=== PATIENT | male | born 1945 | race Caucasian/White ===

== ENCOUNTER 2018-03-27 08:01 | Outpatient (CLI) | payer MEDICARE ==
--- NOTE | 2018-03-27 10:20 | ULT ---
BILATERAL RENAL ULTRASOUND COMPLETE: History: 72-year-old male with chronic kidney disease. FINDINGS: Right kidney measures 13.3 x 7.2 x 7.1 cm and contains a 3.2 x 4.3 x 4.9 cm cyst. Left kidney measures 10.9 x 6.0 x 5.7 cm. There is bilateral cortical thinning. No significant hydron ephrosis. There are two nodular foci within the bladder, one to the right side and the other more pos teriorly. Bladder mass/masses is certainly a consideration. Some heterogeneous bladder wall thickenin g. Follow up cystoscopy should be considered. IMPRESSION: Minimal diffuse renal cortical thinning without hydronephrosis. Right renal cyst. At least two nodula r serena within the bladder. There is some heterogeneous bladder wall thickening as well. Follow up bi lateral cystoscopy in this regard is suggested. POS: [facility]
== END 2018-03-27 08:02 | disposition home or self-care (01) ==
LOC: SCSULT 08:01
PROVIDERS: ATTEND Family Medicine
DX: N18.3 Chronic kidney disease, stage 3 (moderate) (principal); N28.1 Cyst of kidney, acquired; N32.9 Bladder disorder, unspecified
CPT/HCPCS: 76770

== ENCOUNTER 2019-03-06 05:39 | Emergency (ER) | payer MEDICARE ==
[2019-03-06 06:04] LABS: Blood, Urine Large (Negative); Clarity Cloudy (Clear); Glucose, Urine (Dipstick) Negative (Negative); Protein, Urine (Dipstick) > or equal to 300 mg/dL (Neg-Trace)
[2019-03-06 06:07] LABS: Leukocyte Unable to Interpret (Negative); Nitrite Unable to Interpret (Negative)
[2019-03-06 06:08] LABS: Bilirubin Unable to Interpret (Negative); Urobilinogen UNABLE TO INTERPRET mg/dL (Less than 2)
[2019-03-06 06:19] LABS: RBC/HPF Greater than 50 HPF (0-3); Squamous Epithelial 0-3 HPF (0-3); WBC/HPF 21-50 HPF (0-3)
[2019-03-06 06:22] LABS: Bacteria/HPF 2+ HPF (None Seen)
== END 2019-03-06 06:39 | disposition home or self-care (01) ==
LOC: SCSER 05:39
DX: R31.0 Gross hematuria (principal); E78.5 Hyperlipidemia, unspecified; I10 Essential (primary) hypertension; Z79.899 Other long term (current) drug therapy
CPT/HCPCS: 81003; 81015; 87077; 87086; 87186; 99283

== ENCOUNTER 2021-07-09 08:50 | Outpatient (CLI) | payer MEDICARE ==
[2021-07-09 11:23] LABS: #Basophils 0.1 10x3/uL (0.0-0.2); #Eosinphils 0.1 10x3/uL (0.0-0.5); #Monocytes 0.5 10x3/uL (0.0-1.1); %Eosinophils 2.7 % (0.0-6.0); %Lymphocytes 28.5 % (18.0-47.0); %Monocytes 9.8 % (0.0-10.0); %Neutrophils 57.8 % (40.0-75.0); Hemoglobin 15.5 g/dL (13.5-17.5); Mean Corpuscular HGB CONC 32.6 g/dL (32.0-36.0); Mean Corpuscular Hemoglobin 29.4 pg (27.0-33.0); Mean Corpuscular Volume 90.1 fl (81.2-95.1); Mean Platelet Volume 11.6 fl (7.4-10.4); Platelet Count 171 10x3/uL (150-450); RBC Distribution Width 13.1 % (11.5-14.5); Red Blood Cell (RBC) Count 5.27 10x6/uL (4.32-5.72); White Blood Cell (WBC) Count 5.2 10x3/uL (3.5-10.5)
[2021-07-09 11:43] LABS: Anion Gap 12 mmol/L (10-20); BUN (Urea Nitrogen) 19 mg/dL (8.4-25.7); Calc. Creatinine Clearance 0 mL/min (70-130); Calcium 8.9 mg/dL (7.8-10.44); Carbon Dioxide 29 mmol/L (23-31); Chloride 104 mmol/L (98-107); Glucose 116 mg/dL (83-110); Potassium 4.6 mmol/L (3.5-5.1); Sodium 140 mmol/L (136-145)
[2021-07-09 20:43] LABS: SARS-CoV-2 PCR by NAA Not Detected (NotDetected)
== END 2021-07-09 08:51 | disposition home or self-care (01) ==
LOC: LABBT 08:50
PROVIDERS: ATTEND Orthopaedic Surgery Hand Surgery
DX: Z01.818 Encounter for other preprocedural examination (principal); M72.0 Palmar fascial fibromatosis [Dupuytren]; Z20.822 Contact with and (suspected) exposure to COVID-19
CPT/HCPCS: 80048; 85025; 93005; U0003; U0005; 93010

== ENCOUNTER 2021-10-29 14:28 | Outpatient (CLI) | payer MEDICARE ==
[2021-10-29 23:17] LABS: SARS-CoV-2 PCR by NAA Not Detected (NotDetected)
== END 2021-10-29 14:29 | disposition home or self-care (01) ==
LOC: LABBT 14:28
PROVIDERS: ATTEND Orthopaedic Surgery Hand Surgery
DX: Z01.812 Encounter for preprocedural laboratory examination (principal); M72.0 Palmar fascial fibromatosis [Dupuytren]; Z20.822 Contact with and (suspected) exposure to COVID-19
CPT/HCPCS: U0003; U0005

== ENCOUNTER 2021-11-02 10:43 | Day surgery (SDC) | payer MEDICARE ==
[2021-10-28 14:56] VITALS: BMI 32.7
[2021-11-02] MEDS ORDERED: fentaNYL Citrate/PF 100 MCG/2 ML SYRINGE ONE (12:33)
[2021-11-02 12:44] LABS: #Eosinphils 0.1 thou/uL (0.0-0.7); #Lymphocytes 1.4 thou/uL (1.20-3.40); #Monocytes 0.5 thou/uL (0.11-0.59); #Neutrophils 3.5 thou/uL (1.40-6.50); %Basophils 0.5 % (0.0-1.0); %Eosinophils 2.1 % (0.0-10.0); %Lymphocytes 24.9 % (21.0-51.0); %Monocytes 9.4 % (0.0-10.0); %Neutrophils 63.1 % (42.0-75.0); Hemoglobin 15.4 g/dL (14.0-18.0); Mean Corpuscular HGB CONC 32.9 g/dL (32.0-36.0); Mean Corpuscular Hemoglobin 30.6 pg (27.0-31.0); Mean Corpuscular Volume 92.9 fL (78.0-98.0); Mean Platelet Volume 8.3 fL (7.4-10.4); Platelet Count 179 thou/uL (130-400); RBC Distribution Width 12.2 % (11.5-14.5); Red Blood Cell (RBC) Count 5.03 mill/uL (4.70-6.10); White Blood Cell (WBC) Count 5.5 thou/uL (4.8-10.8)
[2021-11-02] MEDS ORDERED: Propofol 500 MG/50 ML VIAL ONE (13:01)
[2021-11-02] MEDS ORDERED: ceFAZolin (BATCH) 2 GM/100 ML BAG ONE (13:58)
[2021-11-02] MEDS ORDERED: Collagenase Clostridium Hist. 0.9 MG VIAL IJ SCH (14:15)
[2021-11-02] MEDS ORDERED: Ketorolac Tromethamine 30 MG/ML VIAL ONE (14:16)
[2021-11-02] MEDS ORDERED: Lidocaine 1% PF 5 ML VIAL ONE (14:16)
[2021-11-02] MEDS ORDERED: Bupivacaine PF 0.5% 30 ML VIAL ONE (14:21)
== END 2021-11-02 15:14 | disposition home or self-care (01) ==
LOC: SDC 10:43
PROVIDERS: ATTEND Orthopaedic Surgery Hand Surgery
PROC: 3E013TZ Introduction of Destructive Agent into Subcutaneous Tissue, Percutaneous Approach (ICD-10-PCS; principal; 2021-11-02)
DX: M72.0 Palmar fascial fibromatosis [Dupuytren] (principal); Z79.84 Long term (current) use of oral hypoglycemic drugs; Z79.899 Other long term (current) drug therapy
CPT/HCPCS: 20527 ×2; 85025; J0775; 36415; J0690; J1885; J2704; S0020